=== PATIENT | female | born 1970 | race Caucasian/White ===

== ENCOUNTER 2022-05-23 08:20 | Day surgery (SDC) | payer OTHER ==
[~2022-05-23] VITALS: Ht 162.6 cm; Wt 73.9 kg
[2022-05-23] MEDS ORDERED: diphenhydrAMINE 50 MG/ML VIAL ONE (09:30)
[2022-05-23] MEDS ORDERED: fentaNYL citrate 0.05 MG/ML VIAL ONE (09:31)
[2022-05-23] MEDS ORDERED: LIDOCAINE 2% 100 MG/5 ML UJET TP ONE (09:31)
[2022-05-23] MEDS ORDERED: MIDAZOLAM 5 MG/5 ML VIAL ONE (09:31)
[2022-05-23] MEDS ORDERED: MIDAZOLAM 2 MG/2 ML VIAL IVP ONE (14:55)
[2022-05-23] MEDS ORDERED: fentaNYL citrate 0.05 MG/ML VIAL IVP ONE (14:55)
== END 2022-05-23 10:40 | disposition home or self-care (01) ==
LOC: MOR 08:20 → MMU 08:23 → MOR 10:40
PROVIDERS: ATTEND Internal Medicine Gastroenterology
DX: Z12.11 Encounter for screening for malignant neoplasm of colon (principal); K57.30 Diverticulosis of large intestine without perforation or abscess without bleeding; Z80.0 Family history of malignant neoplasm of digestive organs; Z98.890 Other specified postprocedural states; Z79.899 Other long term (current) drug therapy
CPT/HCPCS: 45378; J2250; J3010; J1200